=== PATIENT | male | born 1990 | race African-American/Black ===

== ENCOUNTER 2020-01-11 18:18 | Emergency (ER) | payer OTHER, SELFPAY ==
--- NOTE | ~2020-01-11 | XR_ITS ---
EXAMINATION: XR chest 1V portable EXAM DATE: 01/11/2020 19:14 INDICATION: Shortness of breath, cough. History of asthma. TECHNIQUE: Portable AP frontal chest x-ray was obtained. There is no prior study for comparison. FINDINGS: The lungs are clear. There are no pleural effusions. The cardiomediastinal silhouette is within normal limits. There is no pneumothorax suspected. The bones and soft tissues are unremarkab le. IMPRESSION: No acute cardiopulmonary findings. Reviewed, dictated and finalized at location A.
[2020-01-11 18:21] VITALS: BP 148/98; PULSE 119; RESP 20; TEMP 37.3; O2SAT 96
--- NOTE | 2020-01-11 19:28 | ED.SOB ---
HPI - SOB/Dyspnea General Chief Complaint: Shortness of Breath/Dyspnea Stated Complaint: Trouble breathing Time Seen by Provider: 01/11/20 18:42 Source: patient Mode of arrival: ambulatory Limitations: no limitations History of Present Illness HPI Narrative: This is a 29 year old male that presents to the ER for shortness of breath x 1.5 weeks. Reports history of asthma. Reports he has not had trouble with his asthma in a while though. Reports he has been wheezing and coughing. Reports a productive cough, congestion and rhinorrhea. Denies fever or chest pain. Review of Systems Review of Systems: Narrative: CONSTITUTIONAL: Denies fever ENT: Reports rhinorrhea, congestion. Denies sore throat CARDIOVASCULAR: Denies chest pain RESPIRATORY: Reports cough and dyspnea. All systems reviewed & are unremarkable except as noted in HPI and below PMFSH Past Medical History Medical History (Updated 01/11/20 @ 21:26 by Ana M Bedoya PA-C) History of asthma Social History Social History (Updated 01/11/20 @ 19:31 by Ana M Bedoya PA-C) Smoking status: Never smoker Exam Narrative: Exam Narrative: GENERAL: Well-appearing, well-nourished, and in no acute distress. HEAD: Normocephalic, atraumatic. EYES: EOMI. ENT: Nares clear, no rhinorrhea or epistaxis. Mucous membranes moist. Oropharynx without tonsillar hypertrophy exudate or other lesions. Bilateral TMs pearly roberson non-bulging NECK: Supple. No adenopathy or masses. CHEST: No respiratory distress. Mild scattered wheezes. No rales or rhonchi HEART: Regular rate and rhythm. No murmur heard. Normal peripheral pulses. EXTREMITIES: Normal range of motion. No edema. SKIN: Warm, dry, no rash. NEURO: No focal deficits. Alert and oriented x3. PSYCH: Normal mood and affect Course Vital Signs Vital signs: Vital Signs Temperature 99.2 F 01/11/20 18:21 Pulse Rate 119 H 01/11/20 18:21 Respiratory Rate 20 01/11/20 18:21 Blood Pressure 148/98 H 01/11/20 18:21 Pulse Oximetry 96 01/11/20 18:21 Temperature 99.2 F 01/11/20 18:21 Pulse Rate 99 01/11/20 20:58 Respiratory Rate 16 01/11/20 20:58 Blood Pressure 152/98 H 01/11/20 20:27 Pulse Oximetry 97 01/11/20 20:27 MDM - SOB/Dyspnea MDM Narrative Medical decision making narrative: Patient presents the emergency department for asthma exacerbation. He is afebrile and nontoxic appearing. Mildly tachycardic upon arrival with scattered wheezes, patient given breathing treatments with improvement. Oxygen saturation is normal on room air. CBC and metabolic panel without acute findings. Chest x-ray is without acute changes. Patient will be given albuterol as needed for home. He is to follow-up with primary care doctor. He was given warnings to return to the ER Lab Data Attestation: I reviewed the patient's lab results. Result diagrams: 01/11/20 20:10 01/11/20 20:10 Labs: Lab Results 01/11/20 01/11/20 Range/Units 20:10 20:10 WBC 8.2 (4.5-10.0) K/mm3 RBC 5.23 (4.6-6.20) M/mm3 Hgb 14.2 (14.0-18.0) g/dL Hct 43.1 (42.0-52.0) % MCV 82.4 (80-100) fl MCH 27.2 (26-34) pg MCHC 32.9 (32-36) g/dl RDW 13.8 (11.5-14.5) % Plt Count 206 (150-375) k/mm3 MPV 10.9 H (7.4-10.4) fl Immature Gran % (Auto) 0.1 (0-0.5) % Neut % (Auto) 43.5 L (45.5-73.1) % Lymph % (Auto) 37.2 (18.3-44.2) % Door % (Auto) 8.4 (2.6-8.5) % Eos % (Auto) 9.9 H (0-4.4) % Baso % (Auto) 0.9 (0.2-1.2) % Lymph # (Auto) 3.04 (0.9-3.2) K/mm3 Door # (Auto) 0.7 H (0.1-0.6) K/mm3 Eos # (Auto) 0.8 H (0-0.3) K/mm3 Baso # (Auto) 0.1 (0.0-0.1) K/mm3 Abs Immat Gran (auto) 0.01 (0.00-0.031) K/mm3 Absolute Neuts (auto) 3.6 (1.3-6.7) K/mm3 Absolute Nucleated RBC 0.0 (0.0-0.012) K/mm3 Nucleated RBC % 0.0 (0.0-0.2) % Sodium 139 (137-145) mmol/L Potassium 3.5 (3.4-5.0) mmol/L Chloride 108 H (98-107) mmol/L Carbon Dioxide 23
[2020-01-11 19:52] VITALS: PULSE 117; RESP 18
[2020-01-11] MEDS: IPRATROPIUM BR 0.02% INH SOLN 0.5 MG/2.5 ML VIAL INHALATION ×2 (19:52→20:50)
[2020-01-11] MEDS: ALBUTEROL SULFATE NEB 2.5 MG/0.5 ML INH 5 MG INHALATION ×2 (19:52→20:50)
[2020-01-11 20:03] VITALS: PULSE 121; RESP 20
[2020-01-11 20:17] LABS: Basophils Absolute Auto 0.1 K/mm3 (0.0-0.1); Basophils Percent Auto 0.9 % (0.2-1.2); Eosinophils Absolute Auto 0.8 K/mm3 (0-0.3); Eosinophils Percent Auto 9.9 % (0-4.4); Hematocrit 43.1 % (42.0-52.0); Hemoglobin 14.2 g/dL (14.0-18.0); Immature Granulocyte Absolute 0.01 K/mm3 (0.00-0.031); Immature Granulocyte Percent A 0.1 % (0-0.5); Lymphocytes Absolute Auto 3.04 K/mm3 (0.9-3.2); Lymphocytes Percent Auto 37.2 % (18.3-44.2); Mean Corpuscular HGB Conc 32.9 g/dl (32-36); Mean Corpuscular Hemoglobin 27.2 pg (26-34); Mean Corpuscular Volume 82.4 fl (80-100); Mean Platelet Volume 10.9 fl (7.4-10.4); Monocytes Absolute Auto 0.7 K/mm3 (0.1-0.6); Monocytes Percent Auto 8.4 % (2.6-8.5); Neutrophils Absolute Auto 3.6 K/mm3 (1.3-6.7); Neutrophils Percent Auto 43.5 % (45.5-73.1); Platelet Count Result 206 k/mm3 (150-375); Red Blood Count 5.23 M/mm3 (4.6-6.20); Red Cell Distribution Width 13.8 % (11.5-14.5); White Blood Count 8.2 K/mm3 (4.5-10.0)
[2020-01-11 20:27] VITALS: BP 152/98; PULSE 94; RESP 16; O2SAT 97
[2020-01-11 20:31] LABS: Alanine Aminotransferase 25 U/L (4-50); Albumin Level 4.5 g/dL (3.5-5.1); Alkaline Phosphatase 70 U/L (38-126); Aspartate Amino Transferase 32 U/L (17-59); Bilirubin,Total 0.4 mg/dL (0.2-1.3); Blood Urea Nitrogen 18 mg/dL (9-20); CRP < 0.5 mg/dL (<1.0); Calcium 9.2 mg/dL (8.4-10.2); Carbon Dioxide 23 mmol/L (22-30); Chloride 108 mmol/L (98-107); Estimated CRCL calculation 115 ml/min; Estimated Glomerular Filt Rate > 60; Glucose 95 mg/dL (75-110); Potassium 3.5 mmol/L (3.4-5.0); Sodium 139 mmol/L (137-145)
[2020-01-11 20:50] VITALS: PULSE 96; RESP 16
[2020-01-11 20:58] VITALS: PULSE 99; RESP 16
== END 2020-01-11 22:35 | disposition home or self-care (01) ==
PROVIDERS: Physician Assistant; Emergency Provider Emergency Medicine
DX: J45.901 Unspecified asthma with (acute) exacerbation (principal)
CPT/HCPCS: 36415; 71045; 80053; 85025; 86140; 94640; 99284

== ENCOUNTER 2021-04-03 13:57 | Emergency (ER) | payer OTHER, SELFPAY ==
--- NOTE | ~2021-04-03 | XR_ITS ---
EXAMINATION: XR finger 5th RT min 2V DATE: 04/03/2021 14:21 INDICATION: Right hand fifth digit injury and swelling. TECHNIQUE: 4 views of right hand fifth digit were obtained. COMPARISON: None. FINDINGS: Bone alignment is normal. No fracture. There is mild osteoarthritis of distal interphalange al joint. IMPRESSION: 1. 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 Reviewed, dictated and finalized at location A.
[2021-04-03 14:26] VITALS: BP 128/57; PULSE 78; RESP 14; TEMP 36.7; O2SAT 99
--- NOTE | 2021-04-03 14:39 | ED.UPPEXIN ---
HPI - Extremity Injury (Upper) General Chief Complaint: Extremity Injury, Upper Stated Complaint: right pinky injury Time Seen by Provider: 04/03/21 14:30 History of Present Illness HPI narrative: Patient is a 30-year-old male who presents ER with right fifth digit pain. Patient reports he was playing kickball several days ago when he was struck by the ball and dislocated his finger. He relocated himself, purchased a splint from the store, and has immobilized it since then. He is still having achiness in the PIP of the affected finger. No numbness or tingling. Has limited flexion due to pain. Related Data Allergies Allergy/AdvReac Type Severity Reaction Status Date / Time No Known Allergies Allergy Verified 01/12/20 12:09 Review of Systems Musculoskeletal: Musculoskeletal: Reports arthralgias, Reports joint swelling and Denies muscle cramps Neurologic: Denies focal weakness and Denies numbness PMFSH Past Medical History Medical History (Updated 04/03/21 @ 14:47 by Jeremy Vergara MD) History of asthma Surgical History Surgical History (Updated 04/03/21 @ 14:42 by Jeremy Vergara MD) History of knee surgery Bilateral ACL's Social History Social History (System 01/12/20 @ 12:09 by Anamaria Lynne) Smoking status: Never smoker Exam Narrative: Exam Narrative: GENERAL: Well-appearing, well-nourished, and in no acute distress. HEAD: Normocephalic, atraumatic. EXTREMITIES: Focused exam of the right hand reveals mild tenderness of the PIP of the right fifth digit. With hip flexion at the affected joint. Normal extension. Neurovascular intact. SKIN: Warm, dry, no rash. NEURO: Alert and oriented x3. PSYCH: Normal mood and affect. Course Course Emergency Course: Patient informed of results. Continue her splint and take anti-inflammatory medication. Vital Signs Vital signs: Vital Signs Temperature 98.0 F 04/03/21 14:26 Pulse Rate 78 04/03/21 14:26 Respiratory Rate 04/03/21 14:26 Blood Pressure 128/57 L 04/03/21 14:26 Pulse Oximetry 99 04/03/21 14:26 Temperature 98.0 F 04/03/21 14:26 Pulse Rate 78 04/03/21 14:26 Respiratory Rate 14 04/03/21 14:26 Blood Pressure 128/57 L 04/03/21 14:26 Pulse Oximetry 99 04/03/21 14:26 MDM - Extremity Injury (Upper) Imaging Data Radiologist's impression: ITS Impressions Finger X-Ray 04/03/21 14:34 IMPRESSION: 1. 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 Discharge Plan Discharge Clinical Impression: Finger sprain Patient Disposition: Home, Self-Care Condition: Stable Instructions: Finger Sprain (ED) Additional Instructions: Return to the ER if you suffer new injury, you have red/hot finger, you have additional concerns. Your x-rays did not show any evidence of fracture. Prescriptions: New ibuprofen 600 mg tablet 600 mg PO TID Qty: 14 RF: 0 No Action albuterol sulfate 90 mcg/actuation aerosol powdr breath activated 2 inhalation INHALATION Q4-6H PRN (Reason: shortness of breath or wheezing) Qty: 1 RF: 0 albuterol sulfate 2.5 mg/0.5 mL solution for nebulization 5 mg INHALATION Q6H PRN (Reason: shortness of breath or wheezing) Qty: 30 RF: 0 Follow-up/Referrals: Beatriz Ash MD [Physician] - 1 Week PHYSICIAN,ENGINEERING TEST SPECIALIST [Primary Care Provider] -
== END 2021-04-03 14:56 | disposition home or self-care (01) ==
PROVIDERS: Emergency Provider Emergency Medicine
DX: S63.616A Unspecified sprain of right little finger, initial encounter (principal); J45.909 Unspecified asthma, uncomplicated; W21.09XA Struck by other hit or thrown ball, initial encounter; Y93.6A Activity, physical games generally associated with school recess, summer camp and children
CPT/HCPCS: 29130; 73140; 99283

== ENCOUNTER 2022-06-12 07:50 | Emergency (ER) | payer OTHER, SELFPAY ==
[2022-06-12 08:00] VITALS: BP 183/93; PULSE 77; RESP 18; TEMP 36.7; O2SAT 99
--- NOTE | 2022-06-12 09:20 | ED.SKABFB ---
HPI - Skin/Abscess/Foreign Bdy General Chief complaint: Skin/Abscess/Foreign Body Stated complaint: rash on back of neck w/ neck pain Time Seen by Provider: 06/12/22 08:31 History of Present Illness HPI narrative: 32-year-old male presents to the emergency room for evaluation of a rash to his cervical spine neck and upper chest. Patient states the rash began yesterday and is associated with intermittent burning sensation. Denies fevers. Related Data Allergies Allergy/AdvReac Type Severity Reaction Status Date / Time No Known Allergies Allergy Verified 06/12/22 08:23 Review of Systems Review of Systems: CONSTITUTIONAL: Denies fever, chills, or sweats. EYES: Denies visual changes, redness, or discharge. ENT: Denies rhinorrhea, congestion, sore throat, or otalgia. CARDIOVASCULAR: Denies chest pain, palpitations, or edema. RESPIRATORY: Denies cough or dyspnea. GASTROINTESTINAL: Denies abdominal pain, nausea, vomiting, or diarrhea. GENITOURINARY: Denies dysuria or hematuria. SKIN: Reports rash MUSCULOSKELETAL: Denies back pain, joint pain, or myalgia. NEUROLOGIC: Denies headache, numbness, dizziness, or weakness. PSYCHIATRIC: Denies anxiety or depression. [facility] Past Medical History Medical History History of asthma Surgical History Surgical History History of knee surgery Bilateral ACL's Social History Social History Smoking status: Never smoker Exam Narrative: GENERAL: Well-appearing, well-nourished, no physical limitations, and in no acute distress. HEAD: Normocephalic, atraumatic. EYES: Conjunctivae normal, PERRLA and EOMI. NECK: Supple. No adenopathy or masses. CHEST: Clear to auscultation. No respiratory distress. No wheezes rales or rhonchi. No tenderness. HEART: Regular rate and rhythm. No murmur heard. Normal peripheral pulses. BACK: No cervical/thoracic/lumbar tenderness, step-offs, bony abnormality; FROM EXTREMITIES: Normal range of motion. No edema. No clubbing or cyanosis SKIN: Vesicular rash that is distributed to the upper cervical region, left lateral neck, and left upper anterior chest in a dermatomal pattern NEURO: No focal deficits. Alert and oriented x3. MAEW. CN's II-XI intact bilaterally, normal gait PSYCH: Cooperative. Normal mood and affect. Course Vital Signs Vital signs: Vital Signs Temperature 36.7 C 06/12/22 08:00 Pulse Rate 77 06/12/22 08:00 Respiratory Rate 18 06/12/22 08:00 Blood Pressure 183/93 H 06/12/22 08:00 Pulse Oximetry 99 06/12/22 08:00 Oxygen Delivery Room Air 06/12/22 08:00 Temperature 36.7 C 06/12/22 08:00 Pulse Rate 77 06/12/22 08:00 Respiratory Rate 18 06/12/22 08:00 Blood Pressure 183/93 H 06/12/22 08:00 Pulse Oximetry 99 06/12/22 08:00 Oxygen Delivery Room Air 06/12/22 08:00 Discharge Plan Discharge Clinical Impression: Shingles Patient Disposition: Home, Self-Care Condition: Stable Instructions: Antibiotic Form, Shingles (ED) Prescriptions: New valacyclovir 1 gram tablet 1,000 mg PO TID 7 Days Qty: 21 0RF hydrocodone-acetaminophen 5-325 mg tablet 1 tablet PO Q8H PRN (Reason: pain) Qty: 15 0RF No Action albuterol sulfate 90 mcg/actuation aerosol powdr breath activated 2 inhalation INHALATION Q4-6H PRN (Reason: shortness of breath or wheezing) Qty: 1 0RF albuterol sulfate 2.5 mg/0.5 mL solution for nebulization 5 mg INHALATION Q6H PRN (Reason: shortness of breath or wheezing) Qty: 30 0RF ibuprofen 600 mg tablet 600 mg PO TID Qty: 14 0RF Follow-up/Referrals: PHYSICIAN,TEXTILE CONSERVATOR [Primary Care Provider] - Orlando De La Cruz MD [Physician] - Stand Alone Forms: Work/School Release IP Time of Disposition: :25
[2022-06-12 09:39] VITALS: BP 135/82; PULSE 70; RESP 16
== END 2022-06-12 09:40 | disposition home or self-care (01) ==
PROVIDERS: Emergency Provider Nurse Practitioner Family
DX: B02.9 Zoster without complications (principal); J45.909 Unspecified asthma, uncomplicated
CPT/HCPCS: 96372; 99283; J1100

== ENCOUNTER 2023-12-30 09:22 | Emergency (ER) | payer OTHER, SELFPAY ==
--- NOTE | ~2023-12-30 | XR_ITS ---
EXAMINATION: XR knee RT min 4V DATE: 12/30/2023 10:02 INDICATION: Right knee injury. TECHNIQUE: 4 views of right knee were obtained. COMPARISON: None. FINDINGS: Bone alignment is normal. No fracture. There are interference screws from anterior cruciate ligament reconstruction. There is mild tricompartmental osteoarthritis. There is a small knee joint effusion. IMPRESSION: 1. Mild right knee osteoarthritis. 2. Small right knee joint effusion. Reviewed, dictated and finalized at location A.
[2023-12-30 09:23] VITALS: BP 149/100; PULSE 97; RESP 18; TEMP 36.4; O2SAT 100
--- NOTE | 2023-12-30 09:24 | ED.LOWEXIN ---
HPI - Extremity Injury (Lower) General Chief Complaint: Extremity Injury, Lower Stated Complaint: right knee pain Time Seen by Provider: 12/30/23 09:24 Source: patient Mode of arrival: ambulatory Limitations: no limitations History of Present Illness HPI Narrative: Anuj is a 33-year-old male patient presenting to the ER today with complaints of right-sided knee pain x1 week. He reports history of ACL and meniscus repair to the right knee. States he fell down some steps last week and had his knee fully flex and landed on the knee. Reports pain over the patella and to the posterior knee. Reports some mild swelling to the right knee when compared to the left knee. Related Data Allergies Allergy/AdvReac Type Severity Reaction Status Date / Time No Known Allergies Allergy Verified 12/30/23 09:30 Review of Systems Review of Systems: Pertinent positives per HPI. Patient denies any fever, chills, rash, headache, visual changes, dizziness, cough, runny nose, sore throat, shortness of breath, chest pain, palpitations, nausea, vomiting, diarrhea, constipation, abdominal pain, or any urinary issues. [facility] Past Medical History Medical History History of asthma Surgical History Surgical History History of knee surgery Bilateral ACL's Social History Social History Smoking status: Never smoker Comments At the time of my signature, I reviewed and agree with the nursing past medical, surgical, social, and family history. There is no relevant family history pertinent to the patient complaint. Exam Narrative: General: Well-developed, well nourished, in no apparent distress Head: Normocephalic, atraumatic. Cardio: Regular rate and rhythm, s1 and s2 normal, no murmur appreciated. Resp: Clear to auscultation bilaterally, no rhonchi, rales, wheezing or rubs. Musculoskeletal: No deformity,tender to palpation to the anterior knee around the patella, also tender to palpation to the posterior knee has full flexion and extension without pain, no crepitus palpable, grossly normal range of motion, muscle strength strong and equal, peripheral pulse strong, no edema, no cyanosis, normal gait and station Course Course Emergency Course: Portions of this record may have been created with voice recognition software. Vital Signs Vital signs: Vital signs reviewed MDM - Extremity Injury (Lower) MDM Narrative Medical decision making narrative: At the time of visit patient is resting comfortably on the exam table. Patient appears to be nontoxic. Diagnosis: X-ray of the right knee was performed-shows no acute fracture or malalignment. Does show a small knee joint effusion Plan: Supportive measures were discussed with the patient and they voiced understanding discharge instructions and agrees to treatment plan. Return precautions reviewed Differential Diagnosis Differential diagnosis: Likely acute internal derangement of knee and other (Patellar fracture, tibia fracture, femur fracture) Imaging Data Radiologist's impression: ITS Impressions Knee X-Ray 12/30/23 10:03 IMPRESSION: 1. Mild right knee osteoarthritis. 2. Small right knee joint effusion. Discharge Plan Discharge Clinical Impression: Acute knee pain, Effusion of knee joint right, Osteoarthritis Patient Disposition: Home, Self-Care Condition: Stable Instructions: Antibiotic Form, Swollen Knee Joint (ED), Knee Pain (ED), Osteoarthritis (ED) Additional Instructions: Rest, ice, elevate, and wear claudio wrap as directed May wear hinged knee brace when up walking/bearing weight Tylenol/motrin for pain as discussed. No running or sports until healed. Follow up with your PCP if symptoms persist more than 1 week. Follow-up with Dr. Cox-call his office
[2023-12-30 10:30] VITALS: RESP 16
== END 2023-12-30 10:30 | disposition home or self-care (01) ==
PROVIDERS: Emergency Provider Nurse Practitioner Family
DX: M25.561 Pain in right knee (principal); M25.461 Effusion, right knee; M17.11 Unilateral primary osteoarthritis, right knee
CPT/HCPCS: 73564; 99283

== ENCOUNTER 2024-11-08 10:24 | Outpatient (CLI) | payer OTHER, SELFPAY ==
--- NOTE | ~2024-11-08 | XR_ITS ---
Left Hand Technique: PA, oblique, and lateral views were obtained. Clinical History: Pain Findings: No acute fracture or dislocation is seen. Osseous alignment is anatomic. Joint spaces are p reserved. Soft tissues are unremarkable. Impression: Unremarkable left hand. Reviewed, dictated and finalized at location M. WORKER Impression: Unremarkable left hand.
--- OUTSIDE RECORDS SUMMARY | 2024-11-08 10:53 | XMS_ITS | Encounter Summary ---
Author Organization [facility] Address [address] [address] Care Team Providers Care Special Procedure Tech Name Role Phone Unknown, Provider Primary Care Provider Unavaila ble Encounter Details Date Type Department Care Team (Late st Contact Info) Description 08/31/2023 Lab Requisition [facility] - DermPath Lab [address] [place] [address] Ernie Lugo MD [address] [place] [address] Social History Tobacco Use Types Packs/Day Years Used Date Smoking Tobacco: Never Sex and Gender Information Value Date Recorded Sex Assigned at Not on file Gender Identity Not on file Sexual Orientation Not on file documented as of this encounter Plan of Treatment Not on file documented as of this encounter Procedures Procedure Name Priority Date/Time Associated Diagnosis Comments DERMATOPATHOLOGY Routine 08/27/2023 12:0 0 AM STORAGE WHARFAGE CLERK documented in this encounter Results * DERMATOPATHOLOGY (08/27/2023 12:00 AM STORAGE WHARFAGE CLERK) Case Report Dermatopathology Report Case: [id number] Authorizing Provider: Ernie Lugo MD Collected: 08/27/2023 12:00 AM Ordering Location: [facility] DermPath Lab Received: 08/31/2023 06:34 AM Pathologist: Natasha Kaplan MD Specimen: Skin, scalp 3 1:02 PM STORAGE WHARFAGE CLERK DERMATOPATHOLOGY LABORATORY Final Diagnosis Specimen A. SKIN, scalp: TRICHILEMMAL (PILAR) CYST (L72.12) 3 1:02 PM STORAGE WHARFAGE CLERK DERMATOPATHOLOGY LABORATORY Clinical History E. Cyst. Path# [id number]. Check Margins. 3 1:02 PM [facility] DERMATOPATHOLOGY LABORATORY Gross Description Specimen A: Received is one formalin filled container labeled with the patient's name and designated scalp. The specimen consists of a [id number] mm piece of skin. The margin is inked green. The specimen is bisected lengthwise and submitted in 1 cassette. Jar 0. 3 1:02 PM [facility] DERMATOPATHOLOGY LABORATORY Microscopic Description Specimen A. SKIN, scalp: Sections show a cyst that is lined by stratified squamous epithelium that shows trichilemmal keratinization (no granular layer). There is homogeneous pink keratin within the cyst. 1:02 PM [facility] DERMATOPATHOLOGY LABORATORY Disclaimer An external and internal positive and negative controls are appropriate for the histochemical, immunohistochemical and immunofluorescence stain(s) in this case (if any), except where stated explicitly. The performance characteristics of the stain(s) cited in this report were developed and its performance characteristic determined by the Dermatopathology Laboratory at [facility], directed by Dr. Gibson Thompson. These tests need not be, and therefore are not, approved by the [place] Food and Drug Administration. The tests are used for clinical purposes. Billing Codes Specimen Charges Stain Charges 10870 1 3 1:02 PM [facility] DERMATOPATHOLOGY LABORATORY Embedded Images 1:02 PM [facility] DERMATOPATHOLOGY LABORATORY Pathology/Cytolog y TISSUE SPECIMEN FROM SKIN / Unknown 08/27/2023 08/31/2023 6:34 AM STORAGE WHARFAGE CLERK Ernie Lugo MD LAB - PATHOLOGY/CYTO LOGY ORDERABLES DERMATOPATHOLOGY LABORATORY [facility] - Department of Dermatology [address] [phone] documented in this encounter Visit Diagnoses Not on filedocumented in this encounter Care Teams Special Procedure Tech Relationship Specialty Start Date End Date Unknown, Provider PCP - General 10/01/16 documented as of this encounter
--- OUTSIDE RECORDS SUMMARY | 2024-11-08 10:53 | XMS_ITS | Clinical Summary ---
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 Gender Identity Not on file Sexual Orientation Not on file Plan of Treatment Health Maintenance Due Date Last Done Comments Hepatitis C Virus (HCV) Screening 1990 TdaP Immunization 1990 Hepatitis B Immunization (1 of 3 - 19+ 3-dose series) 2009 Influenza Immunization (#1) 2024 SARS-COV-2 Immunization ( - 2023-25 season) 2024 Respiratory Syncytial Virus (RSV) Immunization (Adult) (1 - 1-dose 75+ series) 2065 Meningococcal Immunization (ACWY) Aged Out No longer eligible based on patient's age to complete this topic Pneumococcal Immunization Combined Aged Out No longer eligible based on patient's age to complete this topic Rotavirus Immunization Aged Out No lo nger eligible based on patient's age to complete this topic Insurance [employer] on file
--- OUTSIDE RECORDS SUMMARY | 2024-11-08 10:53 | XMS_ITS | Clinical Summary ---
Author Organization [facility] Address [address] [place], [place] [address] Phone [email or web address] Team Providers Care Gravity Prospecting Operator Name Role Phone Unavailable Primary Care Provider Unavailabl e Allergies No known active allergies Medications albuterol HFA 108 (90 Base) MCG/ACT inhaler Inhale 2 puffs every 6 (six) hours if needed for wheezing. Active albuterol HFA 108 (90 Base) MCG/ACT inhalerIndication s:Mild intermittent asthma without complication Inhale 2 puffs every 6 (six) hours if needed for wheezing. 18 g 03/11/2023 Active Active Problems Problem Noted Date Diagnosed Date Asthma 11/19/2022 Immunizations Name Administration Dates Next Due Covid-19 (Pfizer Mcdowell, 12 yrs+) (CVX-217) 2021 PPD test (TUBERSOL) 0.1 mL ID (CVX-96) Tdap (ADACEL BOOSTRIX) (CVX-115) 11/19/2022 Family History Medical History Relation Name Comments Hypertension Father Amaury Noble Diabetes Maternal Grandmother Stephanie Wang Hypertension Maternal Grandmother Stephanie Wang Alcohol abuse Mother Angela Noble Diabetes Mother Angela Noble Relation Name Status Comments Father Amaury Noble Maternal Grandmother Stephanie Wang Mother Angela Noble Social History Tobacco Use Types Packs/Day Years Used Date Smoking Tobacco: Former Cigars Smokeless Tobacco: Never Tobacco Cessation:Counseling Given: Not Answered Alcohol Use Standard Drinks/Week Comments Yes 10 (1 standard drink = 0.6 oz pu re alcohol) Intimate Partner Violence Answer Date R ecorded Insults You Not on file 12/12/2021 Threatens You Not on file 12/12/2021 Screams at You Not on file 12/12/2021 Physically Hurt Not on file 12/12/2021 Intimate Partner Violence Score Not on file 12/12/2021 Alcohol Use Answer Date Recorded Alcohol Use Status Yes 11/19/2022 Depression Answer Date Recorded PHQ Total Score Not on file 11/24/2023 Sex and Gender Information Value Date Recorded Sex Assigned at Male 11/14/2022 11:33 AM WATER TENDER Legal Sex Male 12:11 AM CDT Gender Identity Male 11/14/2022 11:33 AM WATER TENDER Sexual Orientation Not on file Last Filed Vital Signs Vital Sign Reading Time Taken Comments Blood Pressure 136/82 03/11/2023 9:18 AM CDT Pulse 100 03/11/2023 9:18 AM CDT Temperature 37.1 C (98.7 F) 03/11/2023 9:18 AM CDT Respiratory Rate 20 03/11/2023 9:18 AM CDT Oxygen Saturation 99% 03/11/2023 9:18 AM CDT Inhaled Oxygen Concentration - - Weight 87.5 kg (192 lb 12.8 oz) 03/11/2023 9:18 AM CDT Height 175.3 cm (5' 9 ) 03/11/2023 9:18 AM CDT Body Mass Index 28.47 03/11/2023 9:18 AM CDT Plan of Treatment Health Maintenance Due Date Last Done Comments Dental Cleaning/Exam 1990 Hepatitis B Immunization (1 of 3 - 19+ 3-dose series) 2009 Covid-19 Immunization ( season) 2024 10/27/2021, 03/18/2021, 02/27/2021 Influenza Immunization (#1) 2024 Tetanus (Tdap or Td) Immunization 11/19/2032 11/19/2022 Tetanus Diphtheria and Pertussis Immunization (2 - Td or Tdap) 11/19/2032 11/19/2022 HIB Immunization Aged Out No longer e ligible based on patient's age to complete this topic HPV Immunization Aged Out No longer e ligible based on patient's age to complete this topic Hepatitis A Immunization Aged Out No longer eligible based on patient's age to complete this topic Pneumococcal: Ped (0 to 5 Yrs) and At-Risk Member (6 to 64 Yrs) Aged Out No longer eligible b ased on patient's age to complete this topic Polio Immunization Aged Out No longer eligible based on patient's age to complete this topic Varicella Immunization Aged Out No lo nger eligible based on patient's age to complete [place] [address] [address] R NO COPAY NB
--- OUTSIDE RECORDS SUMMARY | 2024-11-08 10:53 | XMS_ITS | Referral Summary ---
Author Organization [email or web address] Address [address] [place] [address] Care Team Providers Care Derrick Boat Runner Name Role Phone Unknown, Provider Primary Care Provider Unavaila ble Source Comments [email or web address],non-owned Affiliates and Associated Physician Practices is amultiple site organization consisting of ambulatory clinics and hospital sitesin [place], [place], [place] and [place]. This disclosure is being madepursuant to the Care Everywhere program and may not contain all information available regarding this patient. Last updated 18.[employer] [email or web address] Allergies No known active allergies Medications Be aware that medications may not be up to date on this document. Always verify current medications with the patient. No known medications Active Problems No known active problems Social History Tobacco Use Types Packs/Day Years Used Date Smoking Tobacco: Never Sex and Gender Information Value Date Recorded Sex Assigned at Not on file Gender Identity Not on file Sexual Orientation Not on file Last Filed Vital Signs Vital Sign Reading Time Taken Comments Blood Pressure 120/70 10/01/2016 5:37 PM PHARMACIST IN CHARGE Pulse 89 10/01/2016 5:37 PM PHARMACIST IN CHARGE Temperature 37.3 C (99.1 F) 10/01/2016 5:37 PM PHARMACIST IN CHARGE Respiratory Rate 18 10/01/2016 5:37 PM PHARMACIST IN CHARGE Oxygen Saturation 97% 10/01/2016 5:37 PM PHARMACIST IN CHARGE Inhaled Oxygen Concentration - - Weight 88.5 kg (195 lb) 10/01/2016 5:37 PM PHARMACIST IN CHARGE Height 175.3 cm (5' 9 ) 10/01/2016 5:37 PM PHARMACIST IN CHARGE Body Mass Index 28.8 10/01/2016 5:37 PM PHARMACIST IN CHARGE Plan of Treatment Not on file Care Teams Derrick Boat Runner Relationship Specialty Start Date End Date Unknown, Provider PCP - General 10/01/16
--- OUTSIDE RECORDS SUMMARY | 2024-11-08 10:53 | XMS_ITS | Clinical Summary ---
Author Organization [facility] Address [address] [place] [address] Care Team Providers Care Evaporator Repairer Name Role Phone Unknown, Provider Primary Care Provider Unavaila ble Source Comments [facility],non-owned Affiliates and Associated Physician Practices is amultiple site organization consisting of ambulatory clinics and hospital sitesin [place], [place], [place] and [place]. This disclosure is being madepursuant to the Care Everywhere program and may not contain all information available regarding this patient. Last updated 18.[facility] Allergies No known active allergies Medications Be [...] Comments Blood Pressure 120/70 10/01/2016 5:37 PM SERVICE OR WORK DISPATCHER CHIEF Pulse 89 10/01/2016 5:37 PM SERVICE OR WORK DISPATCHER CHIEF Temperature 37.3 C (99.1 F) 10/01/2016 5:37 PM SERVICE OR WORK DISPATCHER CHIEF Respiratory Rate 18 10/01/2016 5:37 PM SERVICE OR WORK DISPATCHER CHIEF Oxygen Saturation 97% 10/01/2016 5:37 PM SERVICE OR WORK DISPATCHER CHIEF Inhaled Oxygen Concentration - - Weight 88.5 kg (195 lb) 10/01/2016 5:37 PM SERVICE OR WORK DISPATCHER CHIEF Height 175.3 cm (5' 9 ) 10/01/2016 5:37 PM SERVICE OR WORK DISPATCHER CHIEF Body Mass Index 28.8 10/01/2016 5:37 PM SERVICE OR WORK DISPATCHER CHIEF Plan of Treatment Health Maintenance Due Date Last Done Comments HIV SCREENING 2005 HEPATITIS C SCREENING 04/30/2008 DTAP/TDAP/TD VACCINES (1 - Tdap) 2009 HEPATITIS B VACCINE (1 of 3 - 19+ 3-dose series) 2009 COVID-19 VACCINE (1 - 2023-2 5 season) 2024 INFLUENZA VACCINE (#1) 2024 DEPRESSION SCREENING 09/21/2024 ZOSTER VACCINE (1 of 2) 2040 HIB VACCINE Aged Out No longer eligi ble based on patient's age to complete this topic HPV VACCINE Aged Out No longer eligi ble based on patient's age to complete this topic MENINGOCOCCAL (Group B) VACCINE Aged Out No longer eligible based on patient's age to complete this topic MENINGOCOCCAL VACCINE Aged Out No xiang martha eligible based on patient's age to complete this topic PNEUMOCOCCAL VACCINE Aged Out No long er eligible based on patient's age to complete this topic Care Teams Evaporator Repairer Relationship Specialty Start Date End Date Unknown, Provider PCP - General 10/01/16
--- OUTSIDE RECORDS SUMMARY | 2024-11-08 10:53 | XMS_ITS | Patient Health Summary ---
Author Organization [facility] [employer] [facility] Address [address] [place] [address] Care Team Providers Care Art Studio Teacher Name Role Phone Unknown, Provider Primary Care Provider Unavaila ble Note from [facility] [employer],non-owned Affiliates and Associated Physician Practices is amultiple site organization consisting of ambulatory clinics and hospital sitesin [place], [place] and [place]. This disclosure is being madepursuant to the Care Everywhere program and may not contain all information available regarding this patient. Last updated 18.[facility] [employer] [facility] Allergies No known active allergies Medications Be [...] Comments Blood Pressure 120/70 10/01/2016 5:37 PM BUFFER AUTOMATIC Pulse 89 10/01/2016 5:37 PM BUFFER AUTOMATIC Temperature 37.3 C (99.1 F) 10/01/2016 5:37 PM BUFFER AUTOMATIC Respiratory Rate 18 10/01/2016 5:37 PM BUFFER AUTOMATIC Oxygen Saturation 97% 10/01/2016 5:37 PM BUFFER AUTOMATIC Inhaled Oxygen Concentration - - Weight 88.5 kg (195 lb) 10/01/2016 5:37 PM BUFFER AUTOMATIC Height 175.3 cm (5' 9 ) 10/01/2016 5:37 PM BUFFER AUTOMATIC Body Mass Index 28.8 10/01/2016 5:37 PM BUFFER AUTOMATIC Procedures * DERMATOPATHOLOGY(Performed 08/27/2023) Results * DERMATOPATHOLOGY (08/27/2023 12:00 AM BUFFER AUTOMATIC) Case Report Dermatopathology Report Case: [id number] Authorizing Provider: Ernie Lugo MD Collected: 08/27/2023 12:00 AM Ordering Location: [facility] DermPath Lab Received: 08/31/2023 06:34 AM Pathologist: Natasha Kaplan MD Specimen: Skin, scalp 1:[address] [facility] DERMATOPATHOLOGY LABORATORY Final Diagnosis Specimen A. SKIN, scalp: TRICHILEMMAL (PILAR) CYST (L72.12) 1:[address] [facility] DERMATOPATHOLOGY [facility]ORATORY Clinical History E. Cyst. Path# [id number]. Check Margins. 1:[address] [facility] DERMATOPATHOLOGY LABORATORY Gross Description Specimen A: Received is one formalin filled container labeled with the patient's name and designated scalp. The specimen consists of a [id number] mm piece of skin. The margin is inked green. The specimen is bisected lengthwise and submitted in 1 cassette. Jar 0. 1:[address] [facility] DERMATOPATHOLOGY LABORATORY Microscopic Description Specimen A. SKIN, scalp: Sections show a cyst that is lined by stratified squamous epithelium that shows trichilemmal keratinization (no granular layer). There is homogeneous pink keratin within the cyst. 1:[address] [facility] DERMATOPATHOLOGY LABORATORY Disclaimer An external and internal positive and negative controls are appropriate for the histochemical, immunohistochemical and immunofluorescence stain(s) in this case (if any), except where stated explicitly. The performance characteristics of the stain(s) cited in this report were developed and its performance characteristic determined by the Dermatopathology Laboratory at [facility], directed by Dr. Gibson Thompson. These tests need not be, and therefore are not, approved by the [place] Food and Drug Administration. The tests are used for clinical purposes. Billing Codes Specimen Charges Stain Charges 34977 1 1:[address] [facility] DERMATOPATHOLOGY LABORATORY Embedded Images 1:[address] [facility] DERMATOPATHOLOGY LABORATORY Pathology/Cytolog y TISSUE SPECIMEN FROM SKIN / Unknown 08/27/2023 08/31/2023 6:34 AM BUFFER AUTOMATIC Ernie Lugo MD LAB - PATHOLOGY/CYTO LOGY ORDERABLES DERMATOPATHOLOGY LABORATORY [facility] - Department of Dermatology [facility] Medicine [address] [place] [address], [address] [phone] Care Teams Art Studio Teacher Relationship Specialty Start Date End Date Unknown, Provider PCP - General 10/01/16
--- OUTSIDE RECORDS SUMMARY | 2024-11-08 10:53 | XMS_ITS | Continuity of Care Document ---
Author Organization [facility] Address [address] [place] [address] [place] [address] Phone Care Team Providers Care Litigation Assistant Name Role Phone Heath Johnson MD Unavailable Unavailable Allergies, Adverse Reactions, Alerts Substance Reaction Status Criticality cat dander Active No Information Medications Medication Instructions Dosage Effective Dates (start - stop) Status Comments cephalexin 500 mg tablet take 1 tablet by oral route every 12 hours 500 MG - Active Procedures Procedure Date OFFICE/OUTPATIENT VISIT, [facility] OFFICE/OUTPATIENT VISIT, [facility] PREV VISIT, [facility], AGE 18-39 Advance Directives Directive Yes / No Effective Date File Name No Information Encounters Encounter Description Practice Location Reason(s) For Visit Diagnoses Date Provider Providers Copied on Encounter OFFICE/OUTPA TIENT VISIT, [facility], [address] [place], [id number], [place] tel:[phone] [facility] sick (chief complaint) pain (chief complaint) boil1 (chief complaint) HTN (chief complaint) Essential (primary) hypertensionMedial epicondylitis, left elbowBoil of buttockViral infection 5 Alex Joe. [address] [facility] [place], [id number] , [place]. tel:[phone] OFFICE/OUTPA TIENT VISIT, [facility], [address] [place], [id number], [place] tel:[phone] [facility] physical (chief complaint) Encounter for general adult medical exam w abnormal findingsPain in right kneeMedial epicondylitis, left elbowPain in left handEssential (primary) hypertension 5 Alex Joe. [address] [place], [place], [id number] , [place]. tel:[phone] Family History Family Member Type Diagnosis Age At Onset Father Problem Alive and well Mother Problem in [place] due to liver cirrhosis Father Problem Hypertension Sister Problem Alive and well Payers Payer name Insurance type Covered republican ID Constanza navarro(nick Ling [id number] Social History Type Description Quantity Date Captured Comments Alcohol Use Details beer & liquor 2 drinks daily 25 Caffeine Use Details Unknown Tobacco Use Status Ex-cigarette smoker 025 Smoking Status Former smoker Sex Male Vital Signs Date / Time: Height Weight BMI Pulse Rate Blood Pressure Temperature Respiratory Rate Body Surface Area Head Circumference BMI percentile Pulse Ox Inhaled Ox 11:24 AM 69.00 in 212.40 lbs 31.3 7 kg/m eter (2) 77 /min 152/88 mm[Hg] 97.6 F 16 /min Chief Complaint And Reason For Visit From encounter dated '10/31/2024 11:21'. sick (chief complaint). Description: Pt c/o acute onset of headache, myalgia, chill since yesterday. pt notice decreasing appetite. Pt denies any sore throat, fever, cough Pt denies any ear pain. pain (chief complaint). Description: Pt c/o right knee, left elbow and left hand pain chronically .Pt has jourdan with hand specialist soon. Pt needs new ortho referral boil1 (chief complaint). Description: Pt has recurrent boil around gluteal fold for several years .Pt denies any acute symptoms Pt states that it occur randoms with drainage and pain with flare up Ptdenies any acute flare up HTN (chief complaint). Description: Pt has mild HTN Pt denies any chest pain or headache. Plan Of Treatment Date Type Action Status Referral Ordered: Randy Burton -Allopathic & Osteopathic Physicians : Plastic Surgery (related to Pain in left hand) ordered Referral Ordered: REA HDEZ -Allopathic & Osteopathic Physicians : Orthopaedic Surgery (related to Pain in right knee) ordered Referral Ordered: MRI JNT OF LWR EXTRE W/O DYE Right knee ordered Referral Referred To: Randy Burton [address], [place], [id number] Ordered: Referrals: Allopathic & Osteopathic Physicians : Plastic Surgery. Randy Burton. Evaluate and treat ordered Referral Referred To: REA HDEZ [address], [place], [id number] [phone] Ordered: Referrals: Allopathic & Osteopathic Physicians : Orthopaedic Surgery. REA HDEZ. Evaluate and treat ordered History Of Present Illness Encounter Date Complaint History Of Prese nt Illness sick Pt c/o acute ons et of headache, myalgia, chill since yesterday. pt notice decreasing appetite. Pt denies any sore throat, fever, cough Pt denies any ear pain. pain Pt c/o right kne e, left elbow and left hand pain chronically .Pt has jourdan with hand specialist soon. Pt needs new ortho referral boil1 Pt has recurrent boil around gluteal fold for several years .Pt denies any acute symptoms Pt states that it occur randoms with drainage and pain with flare up Pt denies any acute flare up HTN Pt has mild HTN Pt denies any chest pain or headache. physical Pt needs annual physical. Pt has mild HTN. 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 he did notice some swelling around the joint initially after restraining the child and then subsequently he notices intermittent pain, especially with movement. Pt denies any neuropathy. Pt fell on right knee several months ago and he flexed his right knee which hit the floor. He went to ER and had negative rays. Pt notices intermittent right knee pain since then. Pt also c/o medial left elbow pain for a while without injury Pt denies any radiculopathy or neuropathy symptoms. Pt c/o intermittent right knee swelling as well. Instructions Date Instruction Additional Infor mation No Information Assessments Type Assessment Date assessment Essential (primary) hypertension assessment Medial epicondylitis, left elbow assessment Boil of buttock assessment Viral infection Mental Status Date Cognitive Assessment Orientation - Garibaldi ed to time, place, person, situation.
--- OUTSIDE RECORDS SUMMARY | 2024-11-08 10:53 | XMS_ITS | Clinical Summary ---
Author Organization [facility] Address [address] [place] [address] Care Team Providers Care Account Coordinator Name Role Phone Janet Richardson MD Primary Care Provider [phone] Allergies Active Allergy Reactions Criticality Noted Date Comments Cat Hair Extract Other (see comment) 09/02/2023 Had reactions as a child does not know what samson of reaction Medications albuterol sulfate HFA 108 (90 Base) MCG/ACT inhalerIndication s:Mild intermittent asthma without complication (HHS/HCC) Inhale 2 puffs into the lungs every 6 (six) hours as needed for Wheezing. 18 g 6 09/02/2023 Active Active Problems Problem Noted Date Diagnosed Date Mild intermittent asthma, uncomplicated (HHS/HCC ) 09/02/2023 Immunizations Name Administration Dates Next Due Fluzone 6 Months+ Quad (0.5 mL Prefilled Syringe ) 09/02/2023 Tdap (Generic) 11/19/2022 Social History Tobacco Use Types Packs/Day Years Used Date Smoking Tobacco: Never Passive Smoke Exposure: Current Smokeless Tobacco: Current Tobacco Cessation:Ready to Q uit: No; Counseling Given: Yes Comments:Marijuana ; counseled by Dr. Richardson. Alcohol Use Standard Drinks/Week Comments Yes 13.3 (1 standard drink = 0.6 oz pure alcohol) PHQ-2 Answer Date Recorded Patient Health Questionnaire-2 Score 0 09/02/2023 Sex and Gender Information Value Date Recorded Sex Assigned at Not on file Legal Sex Male 9:40 AM CDT Gender Identity Not on file Sexual Orientation Not on file Last Filed Vital Signs Vital Sign Reading Time Taken Comments Blood Pressure 136/80 09/02/2023 11:13 AM AUTOMOTIVE MECHANICAL ENGINEER Pulse 69 09/02/2023 10:35 AM AUTOMOTIVE MECHANICAL ENGINEER Temperature 35.9 C (96.6 F) 09/02/2023 10:35 AM AUTOMOTIVE MECHANICAL ENGINEER Respiratory Rate 18 09/02/2023 10:35 AM AUTOMOTIVE MECHANICAL ENGINEER Oxygen Saturation 97% 09/02/2023 10:35 AM AUTOMOTIVE MECHANICAL ENGINEER Inhaled Oxygen Concentration - - Weight 89.8 kg (198 lb) 09/02/2023 10:35 AM AUTOMOTIVE MECHANICAL ENGINEER Height 172.7 cm (5' 8 ) 09/02/2023 10:35 AM AUTOMOTIVE MECHANICAL ENGINEER Body Mass Index 30.11 09/02/2023 10:35 AM AUTOMOTIVE MECHANICAL ENGINEER Plan of Treatment Health Maintenance Due Date Last Done Comments Pneumococcal Vaccine: Pediatrics (0 to 5 Years) and At-Risk Patients (6 to 64 Years) (1 of 2 - PCV) 1996 Hepatitis C 2008 Hepatitis B Vaccines (1 of 3 - 19+ 3-dose series) 2009 COVID-19 Vaccine ( - 2023-2 5 season) 2024 10/27/2021, 03/18/2021, 02/27/2021 Influenza Adult (#1) 2024 09/02/2023 Annual Physical 09/02/2024 09/02/2023 PHQ-2 (Physician [facility]) 09/02/2024 09/02/2023 PHQ-2 (Physician [facility]) 09/21/2024 09/02/2023 DTaP, Tdap and Td Vaccines ( 2 - Td or Tdap) 11/19/2032 11/19/2022 HPV Vaccines Aged Out No longer eligi ble based on patient's age to complete this topic Meningococcal B Vaccine Aged Out No l onger eligible based on patient's age to complete this topic Meningococcal Vaccine Aged Out No xiang martha eligible based on patient's age to complete this topic RSV Immunizations Under 20 Months Aged Out No longer eligible b ased on patient's age to complete this topic Care Teams Account Coordinator Relationship Specialty Start Date End Date Janet Richardson MD [facility] [address] [place] [id number] (work) PCP - General INTERNAL MEDICINE 04/17/23
== END 2024-11-08 10:25 | disposition home or self-care (01) ==
PROVIDERS: PCP Emergency Medicine; Visit Provider Plastic Surgery
DX: M79.642 Pain in left hand (principal)
CPT/HCPCS: 73130